=== PATIENT | male | born 1995 | race Caucasian/White ===

== ENCOUNTER 2016-09-26 00:24 | Emergency (ER) | payer MEDICAID, OTHER ==
[~2016-09-26] VITALS: Ht 170.2 cm; Wt 75.0 kg
[~2016-09-26 00:24] MED LIST: HYDR-3498 PO; IBUP-1542 PO
[2016-09-26 00:30] VITALS: Ht 170.2 cm; Wt 75.0 kg
[2016-09-26] MEDS ORDERED: ONDANSETRON 4 MG INJ IV STA (00:33)
--- NOTE | 2016-09-26 00:37 | ERD ---
ER Documentation Chief Complaint Date/Time DATE: 09/26/16 TIME: 00:34 Chief Complaint biba found outside an apt complex not verbal etoh smell on breath HPI Patient is a 19-year-old male found unresponsive on a bench in a courtyard of an apartment. He had no signs of trauma. He had odor of alcohol on his breath. He did not respond to sternal rub. He had normal vital signs and fingerstick glucose of 97 per EMS. History is limited due to patient not being able to provide history. ROS All systems reviewed and are negative except as per history of present illness. Medications Home Meds Unable to Obtain Active Prescriptions or Reported Meds PMhx/Soc Past medical history: Unobtainable Past surgical history: Unobtainable Social history: Unobtainable FmHx Family History: No coronary disease, No diabetes Physical Exam Vitals Vital Signs Date Time Temp Pulse Resp B/P Pulse Ox O2 Delivery O2 Flow Rate FiO2 09/26/16 05:17 88 14 125/77 100 Room Air 09/26/16 03:42 85 16 116/71 99 Room Air 09/26/16 01:55 90 16 119/70 95 Room Air 09/26/16 00:30 99.0 102 21 119/69 100 Physical Exam Const: Unresponsive to sternal rub, odor of alcohol on breath Head: Very subtle abrasion to right frontal area. Eyes: No pallor, no icterus, mid-range reactive, equal pupils, mild conjunctival injection. ENT: Normal External Ears, Nose and Mouth. Moist mucous membranes Neck: Full range of motion..~ No meningismus. No signs of trauma. Resp: Clear to auscultation bilaterally, no wheezes, no rales Cardio: Regular rate and rhythm, no murmurs Abd: Soft, non tender, non distended. Skin: No petechiae or rashes Back: No midline or flank tenderness Ext: No cyanosis, or edema Neur: No spontaneous movements, no facial droop, unresponsive to noxious stimuli Psych: Cannot assess Result Diagram: 09/26/169909/26/16 0100 Results 24 hrs Laboratory Tests Test 09/26/16 00:35 09/26/16 01:00 Bedside Glucose 95mg/dL White Blood Count 8.710^3/ul Red Blood Count 4.8710^6/ul Hemoglobin 15.4g/dl Hematocrit 44.4% Mean Corpuscular Volume 91.2fl Mean Corpuscular Hemoglobin 31.6pg Mean Corpuscular Hemoglobin Concent 34.7g/dl Red Cell Distribution Width 12.4% Platelet Count 97740^3/UL Mean Platelet Volume 8.8fl Neutrophils % 69.5% Lymphocytes % 22.4% Monocytes % 6.2% Eosinophils % 0.7% Basophils % 0.7% Neutrophils # 6.110^3/ul Lymphocytes # 2.010^3/ul Monocytes # 0.510^3/ul Eosinophils # 0.110^3/ul Basophils # 0.110^3/ul Nucleated Red Blood Cells # 0.010^3/ul Sodium Level 153mmol/L Potassium Level 3.6mmol/L Chloride Level 110mmol/L Carbon Dioxide Level 22mmol/L Anion Gap 25 Blood Urea Nitrogen 11mg/dl Creatinine 1.14mg/dl Glucose Level 100mg/dl Calcium Level 9.0mg/dl Total Bilirubin 0.2mg/dl Direct Bilirubin 0.00mg/dl Indirect Bilirubin 0.2mg/dl Aspartate Amino Transf (AST/SGOT) 48IU/L Alanine Aminotransferase (ALT/SGPT) 76IU/L Alkaline Phosphatase 62IU/L Total Protein 7.4g/dl Albumin 4.5g/dl Globulin 2.90g/dl Albumin/Globulin Ratio 1.55 Salicylates Level < 1.0mg/dl Urine Opiates Screen Negative Acetaminophen Level < 10.0ug/ml Urine Barbiturates Negative Urine Amphetamines Screen Negative Urine Benzodiazepines Screen Negative Urine Cocaine Screen Positive Urine Cannabinoids Negative Ethyl Alcohol Level 363.0mg/dl Current Medications Medications (Trade) Dose Ordered Sig/Satnam Route PRN Reason Start Time Stop Time Status Last Admin Dose Admin Ondansetron HCl 4 mg 4 mg ONCE STAT IV 09/26/16 00:33 09/26/16 00:34 DC 09/26/16 01:01 Sodium Chloride (NS) 1,000 ml @ 1,000 mls/hr Q1H ONCE IV 09/26/16 02:30 09/26/16 03:29 DC 09/26/16 02:30 Procedures/MDM MDM: Patient is a 21-year-old male brought in to the ER after being found obtunded lying on a bench in an apartment courtyard. He was found to have significant alcohol intoxication as well as a tox screen was positive for cocaine. He had hypernatremia but no other significant electrolyte abnormality. He had signs of minor trauma to the forehead, so head CT was performed and was negative. He was placed in cervical spine precautions with plan to reassess the patient clinically when he was sober. After 5 hours in the ER, the patient awoke and was evaluable. He did have midline tenderness and stated that his left arm was weak and felt numb. C-spine precautions were maintained and a CT of the cervical spine was ordered. At the end of my shift, the patient was signed out to Dr. Bundy, with plan to review CT of the cervical spine and repeat clinical evaluation when the patient is clinically sober. The patient denied depression or suicidality. He denied other coingestants. Once the patient is clinically sober and his cervical spine is cleared, he can be discharged home unless he develops other symptoms or other medical issues arise in the interim. Departure Diagnosis: Primary Impression: Alcohol intoxication Complication of substance-induced condition: uncomplicated Qualified Code: F10.120 - Alcohol intoxication, uncomplicated Condition: Stable HUAN MON MD Sep 26, 2016 00:36
[2016-09-26 01:24] LABS: ADD SCAN DIFF NO
[2016-09-26 01:45] LABS: BASOPHIL # 0.1 10^3/ul (0.0-0.1); BASOPHILS % 0.7 % (0.0-2.0); EOSINOPHILS # 0.1 10^3/ul (0.0-0.5); EOSINOPHILS % 0.7 % (0.0-7.0); HEMATOCRIT 44.4 % (42.0-52.0); HEMOGLOBIN 15.4 g/dl (14.0-18.0); LYMPHOCYTES % 22.4 % (15.0-51.0); MEAN CORPUSCULAR HEMOGLOBIN 31.6 pg (29.0-33.0); MEAN CORPUSCULAR HGB CONC 34.7 g/dl (32.0-37.0); MEAN CORPUSCULAR VOLUME 91.2 fl (82.0-101.0); MEAN PLATELET VOLUME 8.8 fl (7.4-10.4); MONOCYTE # 0.5 10^3/ul (0.3-0.9); MONOCYTES % 6.2 % (0.0-11.0); NEUTROPHIL # 6.1 10^3/ul (1.6-7.5); NEUTROPHILS % 69.5 % (39.0-77.0); PLATELET COUNT 293 10^3/UL (140-415); RED BLOOD COUNT 4.87 10^6/ul (4.70-6.10); RED CELL DISTRIBUTION WIDTH 12.4 % (11.5-14.5); WHITE BLOOD COUNT 8.7 10^3/ul (4.8-10.8)
--- NOTE | 2016-09-26 01:55 | RADRPT ---
PROCEDURE: Noncontrast CT Head. CLINICAL INDICATION: Pain. TECHNIQUE: Noncontrast CT of the head was obtained. The administered radiation dose was CTDI vol = 43 mGy, DLP = 810 mGy-cm. COMPARISON: No pertinent prior examinations were submitted for comparison. FINDINGS: The ventricles and sulci are within normal limits. There is no acute intracranial hemorrhage or ext ra-axial fluid collection. There is no mass effect. No midline shift is identified. There is no loss of milligan-white differentiation to suggest acute infarction. The orbits are within normal limits. The paranasal sinuses and mastoid air cells are without fluid. No destructive osseous lesion is identified. IMPRESSION: No acute findings. RPTAT: HIKT .Bart Eddy MD, MD Date Time Electronically viewed and signed by .Bart Eddy MD, on 09/26/2016 01:55 .T/
[2016-09-26 01:57] LABS: CANNABINOIDS Negative (NEGATIVE)
[2016-09-26 01:58] LABS: BARBITURATES Negative (NEGATIVE); BENZODIAZEPINES Negative (NEGATIVE); COCAINE Positive (NEGATIVE); OPIATES Negative (NEGATIVE)
[2016-09-26 01:59] LABS: ALANINE AMINOTRANSFERASE 76 IU/L (13-69); ALBUMIN 4.5 g/dl (3.3-4.9); ALBUMIN/GLOBULIN RATIO 1.55; ALKALINE PHOSPHATASE 62 IU/L (42-121); ANION GAP 25 (8-16); ASPARTATE AMINO TRANSFERASE 48 IU/L (15-46); BILIRUBIN,INDIRECT 0.2 mg/dl (0-1.1); BILIRUBIN,TOTAL 0.2 mg/dl (0.2-1.3); BLOOD UREA NITROGEN 11 mg/dl (7-20); CARBON DIOXIDE 22 mmol/L (21-31); CHLORIDE 110 mmol/L (97-110); CREATININE 1.14 mg/dl (0.61-1.24); GLUCOSE 100 mg/dl (70-220); POTASSIUM 3.6 mmol/L (3.5-5.1); SODIUM 153 mmol/L (135-144); TOTAL PROTEIN 7.4 g/dl (6.1-8.1)
[2016-09-26 02:06] LABS: ACETAMINOPHEN < 10.0 ug/ml (10.0-30.0); SALICYLATE < 1.0 mg/dl (5.0-30.0)
[2016-09-26] MEDS ORDERED: SOD CHLORIDE 0.9% 1,000 ML IV ONE (02:30)
--- NOTE | 2016-09-26 07:06 | RADRPT ---
PROCEDURE: CT Cervical Spine without contrast. CLINICAL INDICATION: Neck pain. Trauma. TECHNIQUE: Noncontrast CT of the cervical spine was performed with axial images. Coronal and sagitta l images were also performed. The administered radiation dose was CTDI vol = 22.33 mGy, DLP = 590.4 mGy-cm. One or more of the following dose reduction techniques were used: Automated exposure contro l, Adjustment of the mA and/or kV according to patient size, or Use of iterative reconstruction tech nique. COMPARISON: There are no similar studies submitted for comparison. FINDINGS: There is preservation of the normal cervical lordosis. The vertebral body heights are maintained. There is normal alignment. There is no destructive osseous lesion. No acute fracture is identified. The discs are normal in height. C2-C3 : There is no disc herniation, spinal canal, or foraminal stenosis. C3-C4 : There is no disc herniation, spinal canal, or foraminal stenosis. C4-C5 : There is no disc herniation, spinal canal, or foraminal stenosis. C5-C6 : There is no disc herniation, spinal canal, or foraminal stenosis. C6-C7 : There is no disc herniation, spinal canal, or foraminal stenosis. C7-T1 : There is no disc herniation, spinal canal, or foraminal stenosis. IMPRESSION: 1. No acute fracture or subluxation. 2. No significant disk herniation, spinal canal, or bilateral foraminal stenosis. Further findings as detailed above. RPTAT: PP .Oscar Duggan MD, MD Date Time Electronically viewed and signed by .Oscar Duggan MD, on 09/26/2016 07:05 .F/
[2016-09-26 09:28] VITALS: BP 130/68; PULSE 81; RESP 14
--- NOTE | 2016-09-26 10:45 | EN ---
Date/Time of Note Date/Time of Note DATE: 09/26/16 TIME: 10:44 ER Progress Note The disposition of this patient was signed out to me. He was very intoxicated. He did complain of some hand numbness. CT C-spine was ordered and I was to perform a repeat neurovascular exam after. Patient now has no numbness. CT is negative for any fractures or serious stenosis. Is clinically sober and feeling well. Normal neurological exam. Discharging with primary care follow- up BENITA MONTERO DO Sep 26, 2016 10:45
== END 2016-09-26 10:46 | disposition home or self-care (01) ==
LOC: EDBD 00:24 → E/R 00:24 → MERGE 00:24 → E/R 10:46
DX: F10.120 Alcohol abuse with intoxication, uncomplicated (principal); R51 Headache
CPT/HCPCS: 70450; 72125; 80053; 80306; 80307; 82962; 85025; J2405; J7030; 36415; 96374; P9612